=== PATIENT | female | born 1985 | race Hispanic/Latino ===

== ENCOUNTER 2023-04-19 12:25 | Day surgery (SDC) | payer OTHER, SELFPAY ==
[2023-04-19] VITALS (19 sets, daily range): BP systolic 88–174; BP diastolic 40–107
[2023-04-19] MEDS: NSS 500 IV (04:35)
[2023-04-19 05:00] LABS: % Basophils 0.4 % (0-2); % Eosinophils 0.3 % (0-6); % Immature Granulocytes 0.4 % (0-0.5); % Lymphocytes 15.4 % (20.5-51.1); % Monocytes 4.3 % (1.7-9.3); % Neutrophils 79.2 % (42.2-75.2); Absolute Lymphocytes 1.4 10^3/uL (1.2-3.4); Absolute Monocytes 0.4 10^3/uL (0.1-0.6); Absolute Neutrophils 7.3 10^3/uL (1.4-6.5); Hematocrit 32.8 % (37.0-47.0); Hemoglobin 10.4 g/dL (12.0-16.0); Mean Corp Hgb Conc. 31.7 g/dL (33.0-37.0); Mean Corpuscular Hgb 22.8 pg (27.0-31.0); Mean Corpuscular Volume 71.9 fL (81.0-99.0); Mean Platelet Volume 10.3 fL (7.4-10.4); Nucleated Red Blood Cells % 0 %; Platelet Count 276 10^3/uL (130-400); Red Blood Cell Count 4.56 10^6/uL (4.20-5.40); Red Cell Dist. Width 17.2 % (11.5-14.5); White Blood Cell Count 9.2 10^3/uL (4.8-10.8)
[2023-04-19 05:22] LABS: Lactic Acid 0.7 mmol/L (0.7-2.0)
[2023-04-19 05:25] LABS: ALT (SGPT) 18 U/L (0-35); AST (SGOT) 26 U/L (14-36); Albumin 4.3 g/dl (3.5-5.0); Alkaline Phosphatase 106 U/L (38-126); Blood Urea Nitrogen 13 mg/dl (7-17); Calcium 8.7 mg/dl (8.4-10.2); Carbon Dioxide 27 mmol/L (22-30); Chloride 107 mmol/L (98-107); Glucose 143 mg/dl (70-99); Lipase 65 U/L (23-300); Potassium 4.3 mmol/L (3.5-5.1); Sodium 136 mmol/L (135-145); Total Bilirubin 0.4 mg/dl (0.2-1.3); Total Protein 7.5 g/dl (6.3-8.2); eGFR > 60.00
--- NOTE | 2023-04-19 06:01 | ED.GENMED ---
History of Present Illness
General
Chief Complaint: Abdominal Pain
Time Seen by Provider: 04/19/23 06:01
Travel History
Have you had any contact with someone who has COVID-19?: No
Do you have any symptoms of coronavirus? Fever > 100 degrees, chills, cough, shortness of breath, sore throat, loss of taste or smell, muscle aches, or headache?: No
History of Present Illness
History of Present Illness:
HPI: Patient presents with upper abdominal pain associate with vomiting. There is been no diarrhea. This symptom started approximately 4 hours ago. She denies any other symptoms including headache and fevers.
EXAM:
GENERAL: She appears uncomfortable
HEENT: Moist oral mucosa
CARDIOVASCULAR: No murmurs, normal heart rate and rhythm, No chest wall tenderness
PULMONARY: No respiratory distress, breath sounds are clear and equal
ABDOMEN: Soft with no peritoneal signs, upper abdominal tenderness noted however the patient also has right lower quadrant tenderness
NEUROLOGIC: Excellent strength all extremities, no coordination deficits
PSYCHIATRIC: Appropriate mental status, normal insight and judgement
EXTREMITIES: Nontender, no edema, moves all extremities equally
SKIN: No rash, no lesions
ED COURSE:
6 AM: I initially evaluated patient
NUMBER AND COMPLEXITY OF PROBLEMS ADDRESSED AT THE ENCOUNTER
� Chronic conditions affecting care: High blood pressure, history of , history of migraines
� Acute Exacerbation and/or Progression of Chronic Illness: This is an acute problem
� Differential Diagnosis includes: Cholecystitis, pancreatitis, appendicitis, bowel obstruction unlikely, viral syndrome
AMOUNT AND/OR COMPLEXITY OF DATA TO BE REVIEWED AND ANALYZED
� I performed an independent evaluation of and my interpretation is:
EKG:
CT: CT shows evidence of calculus cholecystitis.
X-rays:
Laboratory Studies: White count 9.2, hemoglobin 10.4
Other:
� Review of other/old records: Old records show the patient had a hemoglobin 11.0 on 02/06/2021
� Clinical information was obtained by an independent historian: I spoke to the at bedside
� Prescriptions/Medications Considered but not given:
� Further testing considered but not performed:
RISK OF COMPLICATIONS AND/OR MORBIDITY OR MORTALITY OF PATIENT MANAGEMENT
� Social determinants of health affecting care: Lives at home
� Discussion with other providers: I notified Dr. Candelaria at 8:40 AM�he will see patient
� Escalation of care including admission/observation vs risk of discharge considered: The patient appears very comfortable upon arrival. Will give narcotic analgesia as well as Zofran. She already received fluids. Will check
CT imaging as she also has some right lower quadrant tenderness on examination. CT imaging shows evidence of calculus cholecystitis�will give Zosyn and plan admission to the hospital as she remains to appear very uncomfortable
Past History
Past History
ED Past Medical History: None
ED Past Surgical History:
Social History
Tobacco: Non-smoker
Alcohol: None
Personal:
Living: with family
Employment: Employed ([employer])
Phy Exam
Physical Exam
Physical Exam:
See HPI
Course
Orders/Labs/Results
Orders:
Orders
04/19/23 04:35
0.9% Sodium Chloride 500 ml [Nss] 500 ml IV ONCE
04/19/23 04:48
Complete Blood Count/With Diff Urgent
Comprehensive Metabolic Panel Urgent
HCG, Serum Qualitative Screen Urgent
Comment: ADD ON
Lactate Level [Lactic Acid] Urgent
Lipase Urgent
04/19/23 06:08
CT Abd/pelvis W Iv Cont Urgent
Comment:
Reason For Exam: diffuse abd pain x 4hrs, vomit; no diarrhea
04/19/23 06:09
Add On- LAB Urgent
Tests Added?: hcg serum
04/19/23 08:42
HYDROmorphone [Dilaudid] 1 mg .ROUTE .STK-MED ONE
Ondansetron Injectable [Zofran] 4 mg .ROUTE .STK-MED ONE
04/19/23 08:43
HYDROmorphone [Dilaudid] 1 mg IV NOW STA
Ondansetron Injectable [Zofran] 4 mg IV NOW STA
Piperacillin/Tazo 3.375 Gram [Zosyn] 3.375 gram in 50 ml IV NOW
04/19/23 09:44
0.9% Sodium Chloride 1000 ml [Nss] 1,000 ml IV BOLUS
04/19/23 11:18
HYDROmorphone [Dilaudid] 0.25 mg IV PACU-Q5MPRN PRN
HYDROmorphone [Dilaudid] 0.5 mg IV PACU-Q5MPRN PRN
Meperidine [Demerol] 12.5 mg IV PACU-Q5MPRN PRN
Ondansetron Injectable [Zofran] 4 mg IV PACU-ONCEPRN PRN
Prochlorperazine [Compazine] 5 mg IV PACU-ONCEPRN PRN
Notify MD As Directed
Notify physician if: for SDS patients with known or suspected sleep obstructive sleep apnea, monitor in the
PACU.
Notify MD for any apneic/desaturation episodes
O2 Therapy [RESP] Urgent
Titrate/Wean O2 to maintain O2 sat greater than (%): 92
Special Instructions: -Provide supplemental oxygen to achieve O2 sat of 92% or greater.
-After 15 min, may wean O2 and discontinue if patient is able to maintain O2 sat of 92%
or greater during recovery period.
If patient is a discharge home, without oxygen therapy, notify anestheiologist if
unable to maintain O2 SAT of 92% or greater on room air for MD clearance.
04/19/23 11:30
Normosol (Mult Electrolytes) [Normosol-R] 1,000 ml IV PER PROTOCOL
Abnormal Lab Results
04/19/23
04:48
Hgb 10.4 L g/dL
(12.0-16.0)
Hct 32.8 L %
(37.0-47.0)
MCV 71.9 L fL
(81.0-99.0)
MCH 22.8 L pg
(27.0-31.0)
MCHC 31.7 L g/dL
(33.0-37.0)
RDW 17.2 H %
(11.5-14.5)
Absolute Neuts (auto) 7.3 H 10^3/uL
(1.4-6.5)
Neutrophils % 79.2 H %
(42.2-75.2)
Lymphocytes % 15.4 L %
(20.5-51.1)
Creatinine 0.5 L mg/dL
(0.6-1.0)
Glucose 143 H mg/dl
(70-99)
04/19/23 04:48
04/19/23 04:48
Vital Signs
Initial and Last Documented VS:
Initial Vital Signs
Temp Pulse Resp BP Pulse Ox
98.0 F 86 16 174/107 97
04/19/23 04:07 04/19/23 04:07 04/19/23 04:07 04/19/23 04:07 04/19/23 04:07
Last Documented Vital Signs
Temp Pulse Resp BP Pulse Ox
98.0 F 72 18 88/60 97
04/19/23 04:07 04/19/23 10:22 04/19/23 10:22 04/19/23 10:00 04/19/23 10:22
*Critical Care Note
Total Time (30-74mins, 75-104mins- exclusive of procedures): Not Applicable
ED Attending Note
-
Portions of this chart may have been created with voice recognition software.� Occasional wrong word or��sound alike� substitutions may have occurred due to the inherent limitations of voice recognition software.
Discharge Plan
Departure
Patient Disposition: Admit
Date of Disposition: 04/19/23
Time of Disposition: 08:45
Presentation/result/management discussed w/ accepting MD/DO: juan jose
Discharge Problem:
Calculus of gallbladder with cholecystitis
Prescriptions:
No Action
meloxicam 15 mg Tablet
15 mg PO HS
Migraine Relief
1 tab PO DAILYPRN PRN (Reason: mild migraine)
Patient Comments:
04/19/2023, 250 mg migraine pill OTC per pt.
Migraine Relief
2 tab PO DAILYPRN PRN (Reason: severe migraine)
Patient Comments:
04/19/2023, 250 mg migraine pill OTC per pt.
Referrals:
NONE,* [Family Provider] -
Interventions
Interventions:
*Risk Screen - Suicide Last Done: 04/19/23 04:01
*General Assessment Last Done: 04/19/23 04:01
*Neglect/Abuse Screening Last Done: 04/19/23 04:01
ED- Fall Risk Assessment Last Done: 04/19/23 04:01
*ED COVID-19 Vaccine History Last Done: 04/19/23 04:01
FV-Evajkh-Uhfdbmgoms Assessment Last Done: 04/19/23 04:25
[2023-04-19 06:52] LABS: HCG, Serum Qualitative Screen Negative
[2023-04-19] MEDS: ZOFRAN 4 MG IV ×2 (08:46→20:34)
[2023-04-19] MEDS: DILAUDID 1 MG IV (08:46)
[2023-04-19] MEDS: ZOSYN 50 IV (09:58)
[2023-04-19] MEDS: NSS 1000 IV ×3 (09:59→20:33)
--- NOTE | 2023-04-19 10:23 | HP.FOC2 ---
Focused History & Physical
Chief Complaint
HPI:
Chief Complaint: Right-sided abdominal pain
HPI / Indication for Planned Procedure: History and physical obtained utilizing language line/med peds services.
Patient is a 37-year-old , Czech-speaking female presenting to the emergency department today secondary to acute onset of right sided abdominal pain yesterday which persisted overnight into the early a.m. She had nausea and vomiting. She
has had multiple episodes like this in the past particularly over the last 3 to 4 years but has never sought medical evaluation for it. In the past her symptoms would only last for few hours and subside. Bowels have been moving regularly. No
fevers chills or sweats. She does have associated anorexia. No yellowing of the skin or eyes. No dark tea colored urine.
Relevant Past Medical History: Other (Denies any significant medical history)
Relevant Social History: Negative
Relevant Family History: Negative
Relevant Past Surgical History: Negative (No past abdominal surgical history)
Medication
See Medication form for detailed medications: Yes
Medication List (including Herbals & OTC):
Migraine Relief 1 tab PO DAILYPRN PRN mild migraine 04/19/23
Migraine Relief 2 tab PO DAILYPRN PRN severe migraine 04/19/23
meloxicam 15 mg tablet 15 mg PO HS Pain 04/19/23
Medications Reviewed: Yes
Allergies and Reactions
Patient has Allergies: No
Noted Allergies and Reactions:
Allergy/AdvReac Type Severity Reaction Status Date / Time
No Known Allergies Allergy Unverified 02/02/21 13:20
Pertinent Physical Exam
All Other Systems: Negative
Head/Neck: Normal
Lungs: Normal
Heart: Normal
Abdomen: Other (Softly distended, tenderness palpation localizing to the right side with voluntary guarding and rebound.)
Extremities: Normal
Neurological: Normal
Diagnosis / Assessment
Assessment: 37-year-old female presenting with acute calculus cholecystitis and secondary intractable abdominal pain.
CT imaging personally reviewed and interpreted as well as reviewing radiologist report. Distended gallbladder, wall thickening versus pericholecystic edema. Gallstone appears to be located in the neck of the gallbladder. No biliary ductal
dilation within limits of CT imaging. No additional acute or pertinent chronic intra-abdominal findings on CT imaging.
Utilizing the med peds/language line reviewed with patient history and assessment as outlined above. We discussed treatment options and in the setting of her persistent right upper quadrant abdominal pain recommended pursuing cholecystectomy for
definitive care.
Laparoscopic cholecystectomy was reviewed in detail with the patient including the operative technique and steps of the operative procedure. We discussed alternative treatment options, benefits and potential risks such as but not limited to
bleeding, infectious or wound related complications, iatrogenic injury to surrounding viscera. We discussed the typical postoperative recovery pending operative findings.
Any of the patient's concerns or questions were fully addressed and informed consent was obtained.
Plan: Patient has been added onto the OR schedule for lap shannan today
N.p.o. pending or availability
IV fluid hydration
Zosyn for empiric antibiotic coverage
Analgesics and antiemetics as needed
Plan / Procedure
lap shannan
Anesthesia/Sedation to be done by Anesthesia Provider: Yes
--- NOTE | 2023-04-19 14:06 | W.SUR.PREOP ---
Pre-Operative Surgical Note
-
I have examined this patient prior to the performance of the scheduled procedure.
The patient's condition is unchanged from the time of the current History and
Physical and the patient is able to undergo the scheduled procedure.
--- NOTE | 2023-04-19 15:33 | W.IMMPOSTOP ---
Addendum entered and electronically signed by Flynn Candelaria MD 04/19/23 17:08:
#[id number]
Original Note:
Surgical Immed Post Op Note
-
Primary Surgeon: Bari
Assisting Surgeon: None
Pre-op Diagnosis: Acute calculus cholecystitis
Post-op Diagnosis: Acute calculus cholecystitis
Procedure Performed: Laparoscopic cholecystectomy
Anesthesia Type: GETA +0.25% Marcaine
Specimen / Cultures: Gallbladder
Estimated Blood Loss: 8 mL
Complications: None immediate
Operative Findings: Distended gallbladder with stone in the region of the neck of the gallbladder. Gallbladder edema with wall thickening. No adhesions. Cystic duct and artery individually identified and controlled with hemoclips. Gallbladder
removed off liver bed intact and extracted at epigastric 12 mm trocar site.
Patient's spouse updated postop in the waiting area.
Routine postoperative care. Anticipate DC home tomorrow if tolerating dietary advancement and pain control.
--- NOTE | 2023-04-19 17:19 | PTCARENOTE ---
Patient received from PACU in stretcher, transferred to bed; Patient on 1L NC; IVF infusing; Patient and spouse oriented to unit and call pfeiffer use; Surgical site assessed; Bed in lowest position, wheels locked; Safety maintained
[2023-04-19] MEDS: ROXICODONE 5 MG PO (20:34)
[2023-04-20] MEDS: NSS 1000 IV ×2 (02:36→09:03)
[2023-04-20 03:26] VITALS: BP 120/71
[2023-04-20] MEDS: ZOFRAN 4 MG IV (03:33)
[2023-04-20] MEDS: DILAUDID 0.5 MG IV (03:34)
[2023-04-20] MEDS: ROXICODONE 5 MG PO ×2 (06:38→11:55)
[2023-04-20 07:30] VITALS: BP 139/71
[2023-04-20] MEDS: TORADOL 10 MG IV (09:05)
[2023-04-20 11:30] VITALS: BP 139/84
--- NOTE | 2023-04-20 11:58 | W.PN.GS2 ---
Today's Communication / Plan
-
`
Assessment / Plan
-
POD#1 s/p lap shannan for ACC
AFVSS
doing well
stable for d/c home
d/c instructions reviewed
Subjective Data
-
Date of Service: April 20, 2023
pt seen and examined
spouse at bedside
moderate post op incisional pain
pre op GB pain resolved
isaak PO
no nausea
Objective Data
-
Intake and Output
04/19/23 04/20/23 04/21/23
06:59 06:59 06:59
Intake Total 1600 / 1600 1900 / 1900
Balance 1600 / 1600 1900 / 1900
Intake:
Oral fluids 480 / 480
IV fluids (Total) 1600 / 1600 1420 / 1420
NSS 1500 / 1500
Zosyn 50 / 50
normo 50 / 50
Other:
Number of approximated LARGE 2
amounts of urine
Vital Signs
Temp Pulse Resp BP Pulse Ox
98.4 F 68 16 139/71 96
04/20/23 07:30 04/20/23 07:30 04/20/23 07:30 04/20/23 07:30 04/20/23 07:30
Lab Results
04/19/23 04:48
04/19/23 04:48
Calcium 8.7 mg/dl (8.4-10.2) 04/19/23 04:48
Total Bilirubin 0.4 mg/dl (0.2-1.3) 04/19/23 04:48
AST 26 U/L (14-36) 04/19/23 04:48
ALT 18 U/L (0-35) 04/19/23 04:48
Alkaline Phosphatase 106 U/L (38-126) 04/19/23 04:48
Total Protein 7.5 g/dl (6.3-8.2) 04/19/23 04:48
Albumin 4.3 g/dl (3.5-5.0) 04/19/23 04:48
Physical Exam
-
NAD AAOx3
ABD: soft, ND, ttp at incision sites
incisions with glue dressings
--- NOTE | 2023-04-20 12:03 | W.DS.TRANS ---
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
-
Discharge Instructions:
Discharge Diagnosis/Procedures Acute calculus cholecystitis. Laparoscopic
cholecystectomy
Diet As tolerated,Low Fat
Additional Diets Smaller meals initially after surgery has
abdominal bloating and distention are common for
the first few days
Activity No strenuous activity
Additional Activity No lifting over 15 to 20 pounds for 3 to 4 weeks
postop. Walking, standing, stairs and routine
light activities are all okay as tolerated
Driving Restrictions No driving 1 to 2 days or if using narcotics
Bathing Restrictions OK to Shower
Wound Care Glue at surgical sites typically peels off in 2
to 3 weeks
Instructions:
Stand-Alone Forms: Return to Work
Changes to Home Medications: No
Discharge Medications:
DC Medications w/original date entered in [facility]
Migraine Relief 1 tab PO DAILYPRN PRN mild migraine 04/19/23
Migraine Relief 2 tab PO DAILYPRN PRN severe migraine 04/19/23
meloxicam 15 mg tablet 15 mg PO HS Pain 04/19/23
acetaminophen 500 mg tablet (Tylenol Extra Strength) 1,000 mg PO Q6HPRN PRN mild pain #1 tab 04/20/23
oxycodone 5 mg tablet 5 mg PO Q4HPRN PRN breakthrough/severe pain #10 tabs 04/20/23
polyethylene glycol 3350 17 gram/dose oral powder (Miralax) 4 g PO DAILY PRN Constipation #119 grams 04/20/23
Home Medication Changes
Pending Results: No
--- NOTE | 2023-04-20 13:00 | CM ---
Chart reviewed. Spoke with pt and at bedside
Pt reports lives in apt with and children
In process of applying for insurance
Independent, cares for children
No DME. Denies past HH
PCP - Dr Stanford
Pharm [facility]
Will have ride at d/c
Plan anticipate home to previous setting - no needs
== END 2023-04-20 12:58 | disposition home or self-care (01) ==
LOC: PACU 12:25
PROVIDERS: Emergency Medicine; EMERGENCY PHYSICIAN Emergency Medicine
DX: K80.46 Calculus of bile duct with acute and chronic cholecystitis without obstruction (principal)
CPT/HCPCS: 47562; 88304; 74177; 80053; 83605; 83690; 84703; 85025; 96361; 96365; 96375; 99285; Q9967

== ENCOUNTER 2024-03-11 04:58 | Emergency (ER) | payer OTHER, SELFPAY ==
[2024-03-11 05:01] VITALS: BP 185/124
[2024-03-11 05:34] LABS: % Basophils 0.4 % (0-2); % Eosinophils 0.4 % (0-6); % Immature Granulocytes 0.3 % (0-0.5); % Monocytes 3.5 % (1.7-9.3); % Neutrophils 79.4 % (42.2-75.2); Absolute Lymphocytes 1.1 10^3/uL (1.2-3.4); Absolute Monocytes 0.2 10^3/uL (0.1-0.6); Absolute Neutrophils 5.5 10^3/uL (1.4-6.5); Hematocrit 36.8 % (37.0-47.0); Hemoglobin 11.6 g/dL (12.0-16.0); Mean Corp Hgb Conc. 31.5 g/dL (33.0-37.0); Mean Corpuscular Hgb 25.3 pg (27.0-31.0); Mean Corpuscular Volume 80.3 fL (81.0-99.0); Nucleated Red Blood Cells % 0 %; Platelet Count 268 10^3/uL (130-400); Red Blood Cell Count 4.58 10^6/uL (4.20-5.40); White Blood Cell Count 6.9 10^3/uL (4.8-10.8)
[2024-03-11 05:53] LABS: HCG, Serum Qualitative Screen Negative
[2024-03-11 05:58] LABS: ALT (SGPT) 33 U/L (0-35); AST (SGOT) 26 U/L (14-36); Albumin 4.6 g/dl (3.5-5.0); Alkaline Phosphatase 133 U/L (38-126); Blood Urea Nitrogen 9 mg/dl (7-17); Calcium 9.2 mg/dl (8.4-10.2); Carbon Dioxide 26 mmol/L (22-30); Chloride 104 mmol/L (98-107); Glucose 160 mg/dl (70-99); Lipase 66 U/L (23-300); Potassium 3.9 mmol/L (3.5-5.1); Sodium 140 mmol/L (135-145); Total Bilirubin 0.2 mg/dl (0.2-1.3); Total Protein 7.7 g/dl (6.3-8.2); eGFR > 60.00
[2024-03-11 06:29] LABS: Troponin I < 0.012 ng/ml
--- NOTE | 2024-03-11 08:40 | EDRN ---
Pat Chao CATECHIST currently at the pts bedside
--- NOTE | 2024-03-11 08:41 | ED.GENMED ---
History of Present Illness
General
Chief Complaint: Weakness
Source: patient
Exam Limitations: none
Time Seen by Provider: 03/11/24 07:49
Nursing documentation reviewed up to this point in time: agreed with except (Patient denies shortness of breath.)
History of Present Illness
History of Present Illness:
Patient is a 38-year-old female Guamanian-speaking. Language line used. Patient started with headache yesterday and felt very weak all over. She felt nauseous but did not vomit. She did have an episode of diarrhea. She feels body aches and
chills. She felt pressure all over her body and achy including her chest. She did have a mild cough, and complains of nasal congestion and headache. She denies any shortness of breath. She does not smoke. No other sick contacts at home. She is
with ibuprofen without relief.
Past History
Past History
ED Past Medical History: None
ED Past Surgical History:
Social History
Tobacco: Non-smoker
Alcohol: None
Personal:
Living: with family
Employment: Employed ([employer])
Review of Systems
Review of Systems
Allergies reviewed?: Yes
Unable to obtain full review of systems at this time due to: other ( language line used)
Other source history: family
All Other Systems: ROS reviewed and negative except as documented in HPI and ROS
Constitutional: Reports fatigue and chills; Denies fever
EENT: Reports other (Nasal congestion)
Respiratory: Reports cough; Denies trouble breathing
Cardiac: Reports no symptoms
ABD/GI: Reports nausea, vomiting and diarrhea
: Reports no symptoms
Musculoskeletal: Reports no symptoms
Skin: Reports no symptoms; Denies rash
Neurological: Reports headache; Denies dizzy, weakness or numbness
Psychiatric: Reports no symptoms
Phy Exam
General Physical Exam
General Presentation: well appearing
General age: appears older than age
General Skin: warm and dry
General Habitus: normal
General Mental: alert
General Hydration: appears well hydrated
ENT Exam
ENT Exam: EOMI and neck supple
Cardiovascular Exam
Cardiovascular Exam: regular rate/rhythm, no murmur and normal peripheral pulses
Pulmonary Exam
Pulmonary Exam: lungs clear and no respiratory distress
Gastrointestinal Exam
Gastrointestinal Exam: non tender and soft
Neurological Exam
Neurological Exam: alert and oriented x3
Musculoskeletal Exam
Musculoskeletal Exam: full ROM
Course
Orders/Labs/Results
Orders:
Orders
03/11/24 05:11
Electrocardiogram (*1) Urgent
Reason for Study: Chest Pain
03/11/24 05:12
EKG- Treatment ONCE
Test Result ONCE
03/11/24 05:26
Complete Blood Count/With Diff Urgent
Comprehensive Metabolic Panel Urgent
HCG, Serum Qualitative Screen Urgent
Lipase Urgent
Troponin I Urgent
03/11/24 08:43
0.9% Sodium Chloride 1000 ml [Nss] 1,000 ml IV BOLUS
Ketorolac [Toradol] 15 mg IV NOW STA
03/11/24 09:12
COVID-19 Antigen Urgent
Source: Nasal Swab
Influenza A+B Rapid Molecular Urgent
ESTRELLA Source: Nasal Swab
Specimen Description:
03/11/24 10:38
CT Head W/o Iv Contrast Urgent
Comment:
Reason For Exam: headache
03/11/24 12:39
Vital Signs- Treatment ONCE
Frequency: Once
03/11/24 13:02
Acetaminophen [Tylenol] 1,000 mg PO NOW STA
Abnormal Lab Results
03/11/24
05:26
Hgb 11.6 L g/dL
(12.0-16.0)
Hct 36.8 L %
(37.0-47.0)
MCV 80.3 L fL
(81.0-99.0)
MCH 25.3 L pg
(27.0-31.0)
MCHC 31.5 L g/dL
(33.0-37.0)
RDW 16.0 H %
(11.5-14.5)
Absolute Lymphs (auto) 1.1 L 10^3/uL
(1.2-3.4)
Neutrophils % 79.4 H %
(42.2-75.2)
Lymphocytes % 16.0 L %
(20.5-51.1)
Glucose 160 H mg/dl
(70-99)
Alkaline Phosphatase 133 H U/L
(38-126)
03/11/24 05:26
03/11/24 05:26
Vital Signs
Initial and Last Documented VS:
Initial Vital Signs
Temp Pulse Resp BP Pulse Ox
98.8 F 106 26 185/124 97
03/11/24 05:01 03/11/24 05:01 03/11/24 05:01 03/11/24 05:01 03/11/24 05:01
Last Documented Vital Signs
Temp Pulse Resp BP Pulse Ox
97.6 F 82 20 121/75 96
03/11/24 12:59 03/11/24 12:59 03/11/24 12:59 03/11/24 12:59 03/11/24 12:59
MDM/Problems Addressed
Differential Diagnosis Includes:
Not limited to COVID, flu, viral syndrome, URI
MDM/Problems Addressed:
Symptoms are consistent with viral syndrome. Sinusitis is demonstrated on CAT scan however patient has not taken any decongestant for her symptoms.
Patient is in no acute distress afebrile with a normal white count. Offered fluids and Toradol however patient did not want an IV line
case reviewed with ED physician will DC with Sudafed decongestant for the next several days as discussed with close outpatient follow with family doctor. Language line was used for instructions. Patient does report she has a family doctor.
Discussed the importance of close outpatient follow-up, rest supportive care fluids ibuprofen Tylenol Sudafed and outpatient follow-up and if worsening to return if any worsening of symptoms. I did review with patient that if symptoms or not
improved she may need antibiotics.
*Critical Care Note
Total Time (30-74mins, 75-104mins- exclusive of procedures): Not Applicable
ED Attending Note
-
Portions of this chart may have been created with voice recognition software.� Occasional wrong word or��sound alike� substitutions may have occurred due to the inherent limitations of voice recognition software.
Discharge Plan
Departure
Patient Disposition: Home (Routine Discharge)
Date of Disposition: 03/11/24
Time of Disposition: 12:39
Patient with high blood pressure during this ER visit?: Yes
Condition: Fair
Discharge Problem:
Acute sinusitis
Instructions: Viral Syndrome (DC), Sinusitis in adults - ED discharge instructions
Prescriptions:
No Action
acetaminophen [Tylenol Extra Strength] 500 mg tablet
1,000 mg PO Q6HPRN PRN (Reason: mild pain) Qty: 1 0RF
Referrals:
UNKNOWN - PT DOES,NOT KNOW [Family Provider] -
Activity Restrictions/Additional Instructions:
[place] se mencion�, june tomograf�a computarizada muestra sinusitis. [place] Sudafed sin receta para aliviar los s�ntomas. Adem�s, alterne entre Tylenol e ibuprofeno. Consulte a june m�dico en 2 d�as. Si no hay mejor�a, es posible que necesite
antibi�ticos. Devuelva si presenta alg�n s�ntoma.
Interventions
Interventions:
*Risk Screen - Suicide Last Done: 03/11/24 09:31
*General Assessment Last Done: 03/11/24 09:31
*Neglect/Abuse Screening Last Done: 03/11/24 09:31
ED- Fall Risk Assessment Last Done: 03/11/24 09:31
*ED COVID-19 Vaccine History Last Done: 03/11/24 09:31
*Nursing Disposition Last Done: 03/11/24 12:59
ED- Cardiac Assessment Last Done: 03/11/24 09:31
ED- Neurological Assessment Last Done: 03/11/24 09:31
ED-Psychological Assessment Last Done: 03/11/24 09:31
ED- Pulmonary Assessment Last Done: 03/11/24 09:31
Discharge Date and Time
Discharge Date/Time: 03/11/24 13:07
Print Language: ERITREAN
--- NOTE | 2024-03-11 09:29 | EDRN ---
this RN entered the pts room and used bomb technician to communicate with the pt and the pts , the pt refused the covid and influenza swabs at first then while speaking with her the pt agreed, covid and influenza swabs obtained and sent
to lab, the pt refused PIV placement, this RN explained to the pt that the provider Pat Chao CULINARY MANAGER ordered IV toradol for body aches and IV fluids, the pt still refused, the pt refuses to put patient gown on, does not want to be placed on
manager cardiac, Sp02 monitor and BP cuff are currently in place, the pt refuses to open her eyes and refuses to say much to this RN, the pt is resting in stretcher in the lowest position, side rails up x2, call pfeiffer within reach, HOB elevated, no
s/s of distress, VS WNL, the pt is afebrile, will continue to monitor the pt closely
[2024-03-11 09:31] VITALS: BP 136/92; BMI 25.0
[2024-03-11 09:48] LABS: COVID-19 Antigen Negative (Negative)
[2024-03-11 10:00] VITALS: BP 131/75
--- NOTE | 2024-03-11 10:33 | EDRN ---
the pt is resting in stretcher in the lowest position, side rails up x2, call pfeiffer within reach, HOB elevated, no s/s of distress, the pt denies c/o headache at this time, pt still has c/o body aches, BP cuff and Sp02 monitor are currently still in
place, VS WNL, awaiting for Pat Chao SENIOR ELECTRONICS ENGINEER to come to the pts bedside and reassess the pt and update the pt and the pts on the plan of care, will continue to monitor the pt closely
--- NOTE | 2024-03-11 11:49 | EDRN ---
the pt is resting in stretcher in the lowest position, side rails up x1, HOB elevated, no s/s of distress, the pt is refusing for this RN to obtain another set of vital signs, no c/o pain, awaiting for Pat Chao STUNT DRIVER to come to the pts bedside
to update the pt on the plan of care, the pt denies needing anything at this time, will continue to monitor the pt closely
[2024-03-11 12:59] VITALS: BP 121/75
[2024-03-11] MEDS: TYLENOL 1000 MG PO (13:06)
== END 2024-03-11 13:07 | disposition home or self-care (01) ==
LOC: EMR 04:58
PROVIDERS: Emergency Medicine; Nurse Practitioner; EMERGENCY PHYSICIAN Emergency Medicine
DX: J01.90 Acute sinusitis, unspecified (principal); R53.1 Weakness
CPT/HCPCS: 99284; 70450; 80053; 83690; 84484; 84703; 85025; 87502; 87811; 93005